=== PATIENT | male | born 1935 | race Caucasian/White ===

== ENCOUNTER 2017-08-16 07:40 | Observation (INO) ==
--- NOTE | 2017-08-16 10:52 | Internal Med History&Physical ---
Date of Encounter: 08/17/17 Time of Encounter: 10:52 Assessment and Plan (1) COPD exacerbation Current visit: Yes Status: Acute ASSESSMENT: - SOB due to * COPD exacerbation caused by URTI vs allergen exposure vs medication nonocompliance PLAN: - Aerosols q 4 hr and PRN SOB - Solu-medrol 40 mg IV q 6 hr - O2 to keep SpO2 higher than 92% (SpO higher than 95% if CAD) - CBCD, BMP in AM - Sputum Gram stain, C+S - Tylenol 650 mg PO q 4-6 hr PRN pain/fever - Heparin 5000 U SQ BID - Home meds - check the list and restart - ABs (2) Essential hypertension Current visit: Yes Status: Acute We will continue home medication. (3) Diabetes mellitus Current visit: Yes Status: Acute We will continue home meds, start patient Accu-Chek with moderate insulin coverage, obtain hemoglobin A1c. Qualifiers: Diabetes mellitus type: type 2 Diabetes mellitus complication status: with unspecified complications Diabetes mellitus laborer marine terminal insulin use: without usp use Qualified Code(s): E11.8 - Type 2 diabetes mellitus with unspecified complications (4) DVT prophylaxis Current visit: Yes Status: Acute We will place the patient on SCD (5) History of gastroesophageal reflux (GERD) Current visit: Yes Status: Acute Continue home medication (6) Hyperlipidemia Current visit: Yes Status: Acute We will continue her medication and obtain FLP in a.m. Qualifiers: Hyperlipidemia type: pure hypercholesterolemia Qualified Code(s): E78.00 - Pure hypercholesterolemia, unspecified; E78.0 - Pure hypercholesterolemia Internal Medicine - H&P: HPI Chief complaint: Shortness of breath History of present illness: Mr. Kerr is a 82 year old male with past medical history of hypertension diabetes mellitus GERD who presented to the outside facility ER with resented with progressively worsening productive cough associated with dyspnea, she was evaluated by ER staff and had her laboratory data revealed leukocytosis of 20 And lactic acidosis of 1.9, the patient was admitted for further evaluation and management of COPD exacerbation. Past Med Surg Social Fam HX - Past Medical History Medical history: cancer, COPD, diabetes, hyperlipidemia, hypertension Psychiatric history: no psych history - Past Surgical History Surgical History: cancer surgery - Social History Smoking Status: Former smoker Alcohol use: none Drug use: none - Family History Daughter Living Status: Hx Family Cancer: Yes Internal Medicine - H&P: Meds Advair 500-50 Diskus 1 puff IH BID 08/16/17 [History] Albuterol Neb [Proventil Neb] 2.5 mg IH Q4HR 08/16/17 [History] Atorvastatin Calcium [Lipitor] 20 mg PO DAILY 08/16/17 [History] Docusate [Colace] 100 mg PO DAILY 08/16/17 [History] Gabapentin [Neurontin] 100 mg PO BID 08/16/17 [History] Ibuprofen [Ibuprofen] 800 mg PO BID PRN 08/16/17 [History] Magnesium Oxide [Mgo] 400 mg PO DAILY 08/16/17 [History] Metoprolol [Lopressor] 25 mg PO BID 08/16/17 [History] Mirtazapine [Remeron] 30 mg PO HS 08/16/17 [History] Multivitamin [One Daily Essential] 1 tab PO DAILY 08/16/17 [History] Omeprazole [PriLOSEC] 40 mg PO BID 08/16/17 [History] Tizanidine HCl 4 mg PO HS PRN 08/16/17 [History] glipiZIDE [Glucotrol] 2.5 mg PO DAILY 08/16/17 [History] 3 Allergy/AdvReac Type Severity Reaction Status Date / Time levofloxacin [From Levaquin] Allergy Unknown Itching Verified 08/16/17 10:32 Penicillins [PCN] Allergy Unknown Hives Verified 08/16/17 10:32 sulfamethoxazole Allergy Unknown Itching Verified 08/16/17 10:32 [From Bactrim] trimethoprim [From Bactrim] Allergy Unknown Itching Verified 08/16/17 10:32 All Systems PM: A 10-system review of systems was performed and is negative for pertinent findings except as documented above in the HPI. - Constitutional Constitutional: no chills, no fever(s), no night sweats - Cardiovascular Cardiovascular ROS IM: no chest pain, no diaphoresis, no dyspnea, no lightheadedness, no palpitations, no syncope - Respiratory Respiratory: dyspnea, wheezing, no cough, no excessive phlegm production - Gastrointestinal Gastrointestinal: no abdominal pain, no diarrhea, no hematemesis, no hematochezia, no melena, no nausea, no vomiting - Neurological Neurological ROS: no confusion, no convulsions, no focal weakness, no numbness, no tingling, no tremor(s) - Head Head exam: Present: atraumatic, normocephalic - Neck Neck exam general surgery: Present: supple, trachea midline. Absent: lymphadenopathy - Respiratory Respiratory exam: Present: rhonchi, wheezes. Absent: accessory muscle use, rales - Cardiovascular Cardiovascular exam: Present: RRR, +S1, +S2. Absent: diastolic murmur, gallop, rubs, systolic murmur - GI/Abdominal GI/Abdominal exam: Present: normal bowel sounds, soft, no peritoneal signs. Absent: distended, tenderness - Extremities Exam Extremities exam: Present: warm, radial pulses palpable and symmetrical. Absent : calf tenderness, cyanotic, pedal edema - Neurological Exam Neurological exam: Present: CN II-XII intact, oriented X3, no focal deficits. Absent: pronater drift, facial droop, speech deficit Internal Med - H&P Results - Labs CBC & Chem 7: 08/17/17 07:22 08/17/17 07:22
[2017-08-16] MEDS ORDERED: Ondansetron ODT 4 MG TAB.RAPDIS SL PRN (10:54)
[2017-08-16] MEDS ORDERED: *HR* Morphine 2 MG/ML SYRINGE IVP PRN (10:54)
[2017-08-16] MEDS ORDERED: Naloxone 0.4 MG/ML INJ IVP PRN (10:54)
[2017-08-16 11:46] LABS: Basophils # 0.1 K/mcL (0.0-0.2); Basophils % 0.2 %; Hematocrit 38.4 % (37.5-50.1); Hemoglobin 12.2 g/dL (12.9-16.9); Immature Granulocytes % 0.6 % (0-4); Lymphocytes # 0.5 K/mcL (0.6-4.6); Lymphocytes % 2.2 %; Mean Corpuscular HGB Conc 31.8 g/dL (31.6-35.5); Mean Corpuscular Hemoglobin 28.4 pg (28.0-33.3); Mean Corpuscular Volume 89.3 fL (83.0-100.0); Mean Platelet Volume 11.3 fL (9.4-12.4); Monocytes # 0.1 K/mcL (0.0-1.3); Monocytes % 0.6 %; Neutrophils # 19.5 K/mcL (1.6-8.9); Platelet Count 213 K/mcL (140-400); Red Cell Distribution Width 14.9 % (11.5-14.5); Segmented Neutrophils % 96.4 %
[2017-08-16] MEDS: Ipratropium/Albuterol Neb 3 ML IH SCH ×2 (11:46→16:45)
[2017-08-16 11:59] LABS: Alanine Aminotransferase 11 Units/L (7-52); Albumin 3.2 g/dL (3.5-5.7); Alkaline Phosphatase 78 Units/L (34-104); Aspartate Amino Transferase 15 Units/L (13-39); BUN/Creatinine Ratio 24 (6-26); Bilirubin,Total 0.4 mg/dL (0.3-1.0); Blood Urea Nitrogen 23 mg/dL (8-23); Calcium 8.4 mg/dL (8.6-10.3); Carbon Dioxide 22 mEq/L (23-29); Chloride 109 mEq/L (98-107); Globulin 3.3 g/dL (2.4-3.5); Glucose 158 mg/dL (70-105); Osmolality,Calculated 295 (280-300); Potassium 4.3 mEq/L (3.5-5.1); Sodium 139 mEq/L (136-145); Total Protein 6.5 g/dL (6.4-8.9); eGFR For African Americans > 60 (> 60); eGFR For Non-African Americans > 60 (> 60)
[2017-08-16] MEDS: Azithromycin 500 MG in D5% in Water 250 ML IVPB SCH (14:59)
[2017-08-16] MEDS: 0.9 % Sodium Chloride 1,000 ML IVC SCH ×2 (15:00→23:09)
[2017-08-16] MEDS: MethylPREDNISolone 40 MG/ML VIAL IVP SCH ×3 (15:00→23:09)
[2017-08-16] MEDS ORDERED: Ibuprofen 400 MG TABLET PO PRN (19:14)
[2017-08-16] MEDS ORDERED: Dextrose Gel 15 GM/37.5 ML TUBE PO PRN ×2 (19:16)
[2017-08-16] MEDS ORDERED: *HR* Dextrose 50 % in Water (Syg) 50 ML SYRINGE IVP PRN (19:16)
[2017-08-16] MEDS ORDERED: D5% in Water 1,000 ML IVC PRN (19:16)
[2017-08-16 19:34] LABS: Hemoglobin A1C 6.1 %
[2017-08-16] MEDS: Albuterol 2.5 MG/3 ML NEBULIZER IH SCH (20:34)
[2017-08-16] MEDS ORDERED: Budesonide/Formoterol 160/4.5 MDI IH SCH (21:00)
[2017-08-16] MEDS: Gabapentin 100 MG CAPSULE PO SCH (23:08)
[2017-08-16] MEDS: Mirtazapine 15 MG TABLET PO SCH (23:08)
[2017-08-16] MEDS: Insulin LISPRO 300 UNITS/3 ML VIAL SQ SCH (23:09)
[2017-08-17] MEDS: Ipratropium/Albuterol Neb 3 ML IH SCH ×5 (00:40→22:49)
[2017-08-17] MEDS: Albuterol 2.5 MG/3 ML NEBULIZER IH SCH ×2 (00:41→04:08)
[2017-08-17] MEDS: MethylPREDNISolone 40 MG/ML VIAL IVP SCH ×4 (06:00→23:29)
[2017-08-17] MEDS: Acetaminophen 325 MG TABLET PO PRN ×2 (06:25→22:51)
[2017-08-17 07:56] LABS: INR 1.2; Prothrombin Time 12.5 Seconds (9.4-12.1)
[2017-08-17 08:06] LABS: Basophils % 0.1 %; Hematocrit 35.5 % (37.5-50.1); Hemoglobin 11.3 g/dL (12.9-16.9); Immature Granulocytes % 0.6 % (0-4); Lymphocytes # 0.7 K/mcL (0.6-4.6); Lymphocytes % 4.4 %; Mean Corpuscular HGB Conc 31.8 g/dL (31.6-35.5); Mean Corpuscular Hemoglobin 28.4 pg (28.0-33.3); Mean Corpuscular Volume 89.2 fL (83.0-100.0); Mean Platelet Volume 11.4 fL (9.4-12.4); Monocytes # 0.4 K/mcL (0.0-1.3); Monocytes % 2.1 %; Neutrophils # 15.2 K/mcL (1.6-8.9); Platelet Count 209 K/mcL (140-400); Red Blood Count 3.98 M/mcL (4.19-5.50); Red Cell Distribution Width 14.9 % (11.5-14.5); Segmented Neutrophils % 92.8 %
[2017-08-17 08:23] LABS: Alanine Aminotransferase 11 Units/L (7-52); Albumin 2.8 g/dL (3.5-5.7); Alkaline Phosphatase 61 Units/L (34-104); Aspartate Amino Transferase 12 Units/L (13-39); BUN/Creatinine Ratio 29 (6-26); Bilirubin,Total 0.3 mg/dL (0.3-1.0); Blood Urea Nitrogen 25 mg/dL (8-23); Calcium 8.1 mg/dL (8.6-10.3); Carbon Dioxide 24 mEq/L (23-29); Chloride 111 mEq/L (98-107); Chol/HDL Ratio 2.7 (0-4.9); Cholesterol 118 mg/dL (< 200); Globulin 2.7 g/dL (2.4-3.5); Glucose 193 mg/dL (70-105); HDL Cholesterol 43 mg/dL (40-59); LDL Cholesterol,Calculated 65 mg/dL (0-99); Magnesium 1.7 mg/dL (1.6-2.6); Osmolality,Calculated 300 (280-300); Phosphorous 2.1 mg/dL (2.7-4.5); Sodium 140 mEq/L (136-145); Total Protein 5.5 g/dL (6.4-8.9); Triglycerides 51 mg/dL (< 150); eGFR For African Americans > 60 (> 60); eGFR For Non-African Americans > 60 (> 60)
[2017-08-17] MEDS ORDERED: *HR* GlipiZIDE 5 MG TABLET PO SCH (09:00)
[2017-08-17] MEDS: Multivit/Ca/Min/Fe/FA 1 TAB TABLET PO SCH (09:36)
[2017-08-17] MEDS: Gabapentin 100 MG CAPSULE PO SCH ×2 (09:36→22:40)
[2017-08-17] MEDS: Magnesium Oxide 400 MG TABLET PO SCH (09:36)
[2017-08-17] MEDS: Insulin LISPRO 300 UNITS/3 ML VIAL SQ SCH ×4 (09:41→22:39)
--- NOTE | 2017-08-17 09:55 | Internal Med Progress Note ---
<Jose Markham - Last Filed: 08/17/17 09:49> Date of Encounter: 08/17/17 Time of Encounter: 09:49 - Assessment and plan (1) COPD exacerbation Current Visit: Yes Status: Acute Assessment and plan: Presented with worsening cough, productive sputum, dyspnea. Patient's symptoms improved after starting antibiotics, DuoNeb's, Solu-Medrol, Symbicort. Patient's leukocytosis has improved from 20>16.3 At previous facility rapid influenza screen was negative. Lactic acid was 1.95. Plan: Continue current medication regimen. Repeat CBC in the morning. Qualify patient for 24 hour oxygen therapy if we are not able to wean him off oxygen. (2) Diabetes mellitus Current Visit: Yes Status: Acute Assessment and plan: Patient has type 2 diabetes mellitus. Last hemoglobin A1c is 6.1. Patient is on oral hypoglycemic therapy outpatient. Currently patient is on sliding scale. Start patient on 6 units of Levemir at night. Patient is on Solu-Medrol which will worsen his hyperglycemia. We will continue diabetic diet. 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 Continue omeprazole. (4) Essential hypertension Current Visit: Yes Status: Acute Assessment and plan: Controlled. Continue metoprolol (5) Hyperlipidemia Current Visit: Yes Status: Acute Assessment and plan: Control. Continue statin. Qualifiers: Hyperlipidemia type: pure hypercholesterolemia Qualified Code(s): E78.00 - Pure hypercholesterolemia, unspecified; E78.0 - Pure hypercholesterolemia (6) DVT prophylaxis Current Visit: Yes Status: Acute Assessment and plan: heparin SQ - Subjective Interval history: Patient was a transfer from [facility]. His chief complaint was shortness of breath. Patient had symptoms of shortness of breath starting 3 days before admission. Along with that he had productive cough. Patient reported that shortness of breath woke him up from sleep. He reported clear sputum production and fatigue. Patient uses oxygen at night and sometimes throughout the day. He is on 2 L at home. He reports his nebulizer treatments at home did not help with his symptoms. Patient had a chest x-ray done at previous hospital which showed patchy bronchial wall thickening of the right lung base with subtle nodularity. Imaging is not available this report patient's EKG showed sinus tachycardia. This morning patient is awake and alert eating breakfast. He reports that shortness of breath has improved. He is on 2 L oxygen. He reports green sputum production. He denies any chest pain, palpitations, dizziness, abdominal pain, nausea, vomiting, lower extremity swelling, lower extremity pain. - Constitutional Vitals: Temp Pulse Resp BP Pulse Ox 97.6 F 78 17 103/62 97 08/17/17 07:30 08/17/17 07:30 08/17/17 07:30 08/17/17 07:30 08/17/17 07:30 - Other Additional findings: General: Pleasant without distress HEENT: Head atraumatic, normocephalic, EOMI, PERRA, neck nontender to palpation , absent lymphadenopathy, Moist Mucous Membranes, Heart: Regular rate and rhythm with no murmur Lungs: Patient's breast sounds are diminished bilaterally and has some inspiratory wheezing. Abdomen: Soft nontender, nondistended positive bowel sounds Skin: warm and dry Extremities: Absent pedal edema, Neuro: Alert oriented 3 Vascular: Pedal and radial pulses 2 out of 4 Internal Medicine: Result - Labs CBC & Chem 7: 08/17/17 07:22 08/17/17 07:22 Labs: Short CBC 08/16/17 08/17/17 Range/Units 11:31 07:22 WBC 20.2 H 16.3 H (4.3-11.1) K/mcL Hgb 12.2 L 11.3 L (12.9-16.9) g/dL Hct 38.4 35.5 L (37.5-50.1) % Plt Count 213 209 (140-400) K/mcL Neutrophils # 19.5 H 15.2 H (1.6-8.9) K/mcL BMP 08/16/17 08/17/17 11:31 07:22 Sodium 139 140 Potassium 4.3 4.0 Chloride 109 H 111 H Carbon Dioxide 22 L 24 BUN 23 25 H Creatinine 0.96 0.87 Glucose 158 H 193 H Calcium 8.4 L 8.1 L Cardiac Enzymes 08/16/17 08/16/17 08/16/17 Range/Units 11:31 18:09 22:40 Troponin I 0.04 H* 0.03 0.03 (< 0.04) ng/mL Liver Function 08/16/17 08/17/17 Range/Units 11:31 07:22 Total Bilirubin 0.4 0.3 (0.3-1.0) mg/dL AST 15 12 L (13-39) Units/L ALT 11 11 (7-52) Units/L Alkaline Phosphatase 78 61 (34-104) Units/L Albumin 3.2 L 2.8 L (3.5-5.7) g/dL - ABG Interpretation ABG results: PT/INR, D-dimer PT 12.5 Seconds (9.4-12.1) H 08/17/17 07:22 Consult Discharge Plan - Plan Referrals: Asmita De Santiago MD [Primary Care Provider] - <Guanaco Watts - Last Filed: 08/17/17 13:44> Date of Encounter: 08/17/17 - Constitutional Vitals: Temp Pulse Resp BP Pulse Ox 98.2 F 71 17 112/57 96 08/17/17 11:11 08/17/17 11:11 08/17/17 11:11 08/17/17 11:11 08/17/17 11:11 Internal Medicine: Result - Labs CBC & Chem 7: 08/17/17 07:22 08/17/17 07:22 Labs: Short CBC 08/17/17 Range/Units 07:22 WBC 16.3 H (4.3-11.1) K/mcL Hgb 11.3 L (12.9-16.9) g/dL Hct 35.5 L (37.5-50.1) % Plt Count 209 (140-400) K/mcL Neutrophils # 15.2 H (1.6-8.9) K/mcL BMP 08/17/17 07:22 Sodium 140 Potassium 4.0 Chloride 111 H Carbon Dioxide 24 BUN 25 H Creatinine 0.87 Glucose 193 H Calcium 8.1 L Cardiac Enzymes 08/16/17 08/16/17 Range/Units 18:09 22:40 Troponin I 0.03 0.03 (< 0.04) ng/mL Liver Function 08/17/17 Range/Units 07:22 Total Bilirubin 0.3 (0.3-1.0) mg/dL AST 12 L (13-39) Units/L ALT 11 (7-52) Units/L Alkaline Phosphatase 61 (34-104) Units/L Albumin 2.8 L (3.5-5.7) g/dL - ABG Interpretation ABG results: PT/INR, D-dimer PT 12.5 Seconds (9.4-12.1) H 08/17/17 07:22 - Attending Attestation I have independently seen and examined this patient on 08/17/17 and discussed plan of care with the patient and the resident physicians Mr. Kerr is an 82 YO pleanst elderly man with PMH of COPD, chronic resp failure on home O2, DM, GERD he is admitted and being managed for COPDE and Bronchitis He has no new complains, and is laying flat, conversing freely, occasionally dyspneic Physical exam: VSS, not in distress, not cyanotic, oral mucosa is moist, chest exam revealed diffuse wheezing, HS S1, S2 only, no m/g/r, abdomen is soft and not tender, no pedal edema Labs and Imaging reviewed, leukocytosis improving, chem unremarkable Continue duonebs azithromycin, steroids, O2. Rest of details as in resident physician's documentation
[2017-08-17] MEDS: Azithromycin 500 MG in D5% in Water 250 ML IVPB SCH (12:03)
[2017-08-17] MEDS: *HR* Heparin 5,000 UNIT/ML VIAL SQ SCH ×2 (12:05→18:11)
[2017-08-17] MEDS ORDERED: Sennosides/Docusate Sodium TABLET PO PRN (17:09)
[2017-08-17] MEDS: Insulin DETEMIR 100 UNIT/ML X5UNITS SQ SCH (22:40)
[2017-08-17] MEDS: Mirtazapine 15 MG TABLET PO SCH (22:40)
[2017-08-17] MEDS: Melatonin 3 MG TABLET PO PRN (23:29)
[2017-08-18 04:11] LABS: Basophils % 0.1 %; Hematocrit 35.5 % (37.5-50.1); Hemoglobin 10.9 g/dL (12.9-16.9); Immature Granulocytes % 1.1 % (0-4); Immature Platelets 7.9 % (1.1-6.1); Lymphocytes # 0.6 K/mcL (0.6-4.6); Lymphocytes % 3.2 %; Mean Corpuscular HGB Conc 30.7 g/dL (31.6-35.5); Mean Corpuscular Volume 91.3 fL (83.0-100.0); Mean Platelet Volume 11.3 fL (9.4-12.4); Monocytes # 0.4 K/mcL (0.0-1.3); Monocytes % 1.8 %; Neutrophils # 17.8 K/mcL (1.6-8.9); Nucleated Red Blood Cells 0.2 /100 WBC (0); Platelet Count 246 K/mcL (140-400); Red Blood Count 3.89 M/mcL (4.19-5.50); Red Cell Distribution Width 15.3 % (11.5-14.5); Segmented Neutrophils % 93.8 %
[2017-08-18] MEDS: Ipratropium/Albuterol Neb 3 ML IH SCH ×4 (04:12→23:20)
[2017-08-18] MEDS: MethylPREDNISolone 40 MG/ML VIAL IVP SCH ×3 (06:15→16:47)
[2017-08-18] MEDS: *HR* Heparin 5,000 UNIT/ML VIAL SQ SCH ×2 (06:15→16:46)
--- NOTE | 2017-08-18 09:05 | Internal Med Progress Note ---
<Jose Markham - Last Filed: 08/18/17 09:01> Date of Encounter: 08/18/17 Time of Encounter: 09:01 - Assessment and plan (1) COPD exacerbation Current Visit: Yes Status: Acute Assessment and plan: Presented with worsening cough, productive sputum, dyspnea. Patient's symptoms improved after starting antibiotics, DuoNeb's, Solu-Medrol, Symbicort. Leukocytosis worsened from 16-19 secondary to IV steroids. At previous facility rapid influenza screen was negative. on 2L improved sob. Plan: Continue current medication regimen. Qualify patient for 24 hour oxygen therapy if we are not able to wean him off oxygen. PT/OT. Transition from Solu- Medrol to prednisone. (2) Diabetes mellitus Current Visit: Yes Status: Acute Assessment and plan: Patient has type 2 diabetes mellitus. Last hemoglobin A1c is 6.1. Continue basal Levemir. We will continue diabetic diet. 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 Continue omeprazole. (4) Essential hypertension Current Visit: Yes Status: Acute Assessment and plan: Controlled. Continue metoprolol (5) Hyperlipidemia Current Visit: Yes Status: Acute Assessment and plan: Control. Continue statin. Qualifiers: Hyperlipidemia type: pure hypercholesterolemia Qualified Code(s): E78.00 - Pure hypercholesterolemia, unspecified; E78.0 - Pure hypercholesterolemia (6) DVT prophylaxis Current Visit: Yes Status: Acute Assessment and plan: heparin SQ - Subjective Interval history: This morning patient reports improved shortness of breath. Denies chest pain, palpitations, abdominal pain, worsening swelling/pain. - Constitutional Vitals: Temp Pulse Resp BP Pulse Ox 97.4 F L 92 18 147/94 93 08/18/17 07:41 08/18/17 07:41 08/18/17 07:41 08/18/17 07:41 08/18/17 07:41 - Other Additional findings: General: Pleasant without distress Heart: Regular rate and rhythm with no murmur Lungs: Diminished bilaterally. Mild inspiratory wheezing Abdomen: Soft nontender, nondistended positive bowel sounds Skin: warm and dry Extremities: Absent pedal edema, Neuro: Alert oriented 3 Vascular: Pedal and radial pulses 2 out of 4 Internal Medicine: Result - Labs CBC & Chem 7: 08/18/17 03:36 08/17/17 07:22 Labs: Short CBC 08/18/17 Range/Units 03:36 WBC 19.0 H (4.3-11.1) K/mcL Hgb 10.9 L (12.9-16.9) g/dL Hct 35.5 L (37.5-50.1) % Plt Count 246 (140-400) K/mcL Neutrophils # 17.8 H (1.6-8.9) K/mcL - ABG Interpretation ABG results: PT/INR, D-dimer PT 12.5 Seconds (9.4-12.1) H 08/17/17 07:22 Consult Discharge Plan - Plan Referrals: Asmita De Santiago MD [Primary Care Provider] - <Guanaco Watts T - Last Filed: 08/18/17 15:21> Date of Encounter: 08/18/17 - Constitutional Vitals: Temp Pulse Resp BP Pulse Ox 98.3 F 79 22 108/61 95 08/18/17 15:10 08/18/17 15:10 08/18/17 15:10 08/18/17 15:10 08/18/17 15:10 Internal Medicine: Result - Labs CBC & Chem 7: 08/18/17 03:36 08/17/17 07:22 Labs: Short CBC 08/18/17 Range/Units 03:36 WBC 19.0 H (4.3-11.1) K/mcL Hgb 10.9 L (12.9-16.9) g/dL Hct 35.5 L (37.5-50.1) % Plt Count 246 (140-400) K/mcL Neutrophils # 17.8 H (1.6-8.9) K/mcL - ABG Interpretation ABG results: PT/INR, D-dimer PT 12.5 Seconds (9.4-12.1) H 08/17/17 07:22 - Attending Attestation I have independently seen and examined this patient on 08/18/17 and discussed plan of care with the patient and the resident physicians Mr. Kerr is an 82 YO pleasant elderly man with PMH of COPD, chronic resp failure on home O2, DM, GERD he is admitted and being managed for COPDE and Bronchitis He has no new complains, and is laying flat, conversing freely, occasionally dyspneic inbetween sentences He looks flushed today and even though he attributes it to having just finished PTOT prior to eval, he looks more distressed Physical exam: VSS, not in distress, not cyanotic, oral mucosa is moist, chest exam revealed diffuse transmitted sounds and wheezing, HS S1, S2 only, no m/g/r , abdomen is soft and not tender, no pedal edema Labs and Imaging reviewed, leukocytosis slightly worsened, chem unremarkable Continue duonebs , add prn dosing, change antibiotics to levaquin, steroids, O2 qualification . Rest of details as in resident physician's documentation
[2017-08-18] MEDS: Gabapentin 100 MG CAPSULE PO SCH ×2 (09:24→22:34)
[2017-08-18] MEDS: Multivit/Ca/Min/Fe/FA 1 TAB TABLET PO SCH (09:24)
[2017-08-18] MEDS: Magnesium Oxide 400 MG TABLET PO SCH (09:24)
[2017-08-18] MEDS: Insulin LISPRO 300 UNITS/3 ML VIAL SQ SCH ×4 (09:25→22:37)
[2017-08-18] MEDS: Budesonide/Formoterol 160/4.5 MDI IH SCH ×2 (11:02→23:21)
[2017-08-18] MEDS: Azithromycin 500 MG in D5% in Water 250 ML IVPB SCH (11:49)
[2017-08-18] MEDS ORDERED: Ipratropium/Albuterol Neb 3 ML IH PRN (13:43)
[2017-08-18] MEDS: Acetaminophen 325 MG TABLET PO PRN (22:33)
[2017-08-18] MEDS: Insulin DETEMIR 100 UNIT/ML X5UNITS SQ SCH (22:34)
[2017-08-18] MEDS: Mirtazapine 15 MG TABLET PO SCH (22:34)
[2017-08-18] MEDS: Melatonin 3 MG TABLET PO PRN (22:46)
[2017-08-19] MEDS: Ipratropium/Albuterol Neb 3 ML IH SCH ×4 (04:15→22:50)
[2017-08-19 06:28] LABS: Basophils % 0.1 %; Hematocrit 34.3 % (37.5-50.1); Hemoglobin 10.8 g/dL (12.9-16.9); Immature Granulocytes % 0.6 % (0-4); Lymphocytes # 0.9 K/mcL (0.6-4.6); Mean Corpuscular HGB Conc 31.5 g/dL (31.6-35.5); Mean Corpuscular Hemoglobin 28.1 pg (28.0-33.3); Mean Corpuscular Volume 89.1 fL (83.0-100.0); Mean Platelet Volume 11.7 fL (9.4-12.4); Monocytes # 0.7 K/mcL (0.0-1.3); Monocytes % 4.8 %; Neutrophils # 12.6 K/mcL (1.6-8.9); Platelet Count 247 K/mcL (140-400); Red Blood Count 3.85 M/mcL (4.19-5.50); Red Cell Distribution Width 15.3 % (11.5-14.5); Segmented Neutrophils % 88.5 %
[2017-08-19 06:35] LABS: BUN/Creatinine Ratio 37 (6-26); Blood Urea Nitrogen 28 mg/dL (8-23); Calcium 8.2 mg/dL (8.6-10.3); Carbon Dioxide 30 mEq/L (23-29); Chloride 108 mEq/L (98-107); Glucose 109 mg/dL (70-105); Osmolality,Calculated 296 (280-300); Potassium 4.1 mEq/L (3.5-5.1); Sodium 140 mEq/L (136-145); eGFR For African Americans > 60 (> 60); eGFR For Non-African Americans > 60 (> 60)
[2017-08-19] MEDS: predniSONE 20 MG TABLET PO SCH (08:30)
[2017-08-19] MEDS: levoFLOXacin 750 MG TABLET PO SCH (08:30)
[2017-08-19] MEDS: Magnesium Oxide 400 MG TABLET PO SCH (08:30)
[2017-08-19] MEDS: Multivit/Ca/Min/Fe/FA 1 TAB TABLET PO SCH (08:30)
[2017-08-19] MEDS: Insulin LISPRO 300 UNITS/3 ML VIAL SQ SCH ×3 (08:31→22:33)
[2017-08-19] MEDS: Gabapentin 100 MG CAPSULE PO SCH ×2 (08:31→22:34)
[2017-08-19] MEDS: *HR* Heparin 5,000 UNIT/ML VIAL SQ SCH (08:31)
[2017-08-19] MEDS: Budesonide/Formoterol 160/4.5 MDI IH SCH ×2 (10:35→22:50)
[2017-08-19] MEDS: Acetaminophen 325 MG TABLET PO PRN ×2 (15:01→22:37)
--- NOTE | 2017-08-19 15:57 | Internal Med Progress Note ---
Date of Encounter: 08/19/17 Time of Encounter: 15:55 - Assessment and plan (1) COPD exacerbation Current Visit: Yes Status: Acute Assessment and plan: 82-year-old/male Admitted with COPD is admission. Presently on levofloxacin/steroids/bronchodilators Polyphonic wheezes still present. No accessory muscles of respiration in use. WBC count: Trending downwards. Plan: Will continue antibiotics/steroids and bronchodilators for today. Noted that patient is approved for short-term rehabilitation. We will change IV antibiotics to oral antibiotics tomorrow. Patient will go back to short-term rehabilitation tomorrow. (2) Diabetes mellitus Current Visit: Yes Status: Acute Assessment and plan: Blood sugar level is within acceptable range. Qualifiers: Diabetes mellitus type: type 2 Diabetes mellitus complication status: with unspecified complications Diabetes mellitus skilled nursing insulin use: without skilled nursing use Qualified Code(s): E11.8 - Type 2 diabetes mellitus with unspecified complications (3) Essential hypertension Current Visit: Yes Status: Acute Assessment and plan: Patient's blood pressure is within acceptable range (4) Hyperlipidemia Current Visit: Yes Status: Acute Qualifiers: Hyperlipidemia type: pure hypercholesterolemia Qualified Code(s): E78.00 - Pure hypercholesterolemia, unspecified; E78.0 - Pure hypercholesterolemia (5) DVT prophylaxis Current Visit: Yes Status: Acute - Subjective Interval history: Patient seen and examined. Discharge elevated. Is comfortably sitting up in a chair. Patient denies chest pain, nausea, vomiting, abdominal pain, dizziness or diarrhea. - Constitutional Vitals: Temp Pulse Resp BP Pulse Ox 98 F 70 16 121/66 98 08/19/17 11:06 08/19/17 11:06 08/19/17 15:38 08/19/17 11:06 08/19/17 15:38 General appearance: Present: A&O X 3, pleasant, no acute distress, answers questions appropriately - Head Head exam: Present: atraumatic, normocephalic - Eye Eye exam: Present: PERRL, conjuntiva pink, sclera anicteric Pupils: Present: PERRL - Neck Neck exam general surgery: Present: supple, trachea midline. Absent: lymphadenopathy - Respiratory Respiratory exam: Present: CTAB, rhonchi, wheezes. Absent: accessory muscle use , rales Additional comments: Bilateral polyphonic wheezes noted - Cardiovascular Cardiovascular exam: Present: RRR, +S1, +S2. Absent: diastolic murmur, gallop, rubs, systolic murmur - GI/Abdominal GI/Abdominal exam: Present: normal bowel sounds, soft, no peritoneal signs. Absent: distended, tenderness - Extremities Exam Extremities exam: Present: warm, radial pulses palpable and symmetrical. Absent : calf tenderness, cyanotic, pedal edema - Neurological Exam Neurological exam: Present: CN II-XII intact, oriented X3, no focal deficits. Absent: pronater drift, facial droop, speech deficit - Skin Skin exam: Present: dry, intact Internal Medicine: Result - Labs CBC & Chem 7: 08/19/17 05:58 08/19/17 05:58 Labs: Short CBC 08/19/17 Range/Units 05:58 WBC 14.3 H (4.3-11.1) K/mcL Hgb 10.8 L (12.9-16.9) g/dL Hct 34.3 L (37.5-50.1) % Plt Count 247 (140-400) K/mcL Neutrophils # 12.6 H (1.6-8.9) K/mcL BMP 08/19/17 05:58 Sodium 140 Potassium 4.1 Chloride 108 H Carbon Dioxide 30 H BUN 28 H Creatinine 0.75 Glucose 109 H Calcium 8.2 L - ABG Interpretation ABG results: PT/INR, D-dimer PT 12.5 Seconds (9.4-12.1) H 08/17/17 07:22 Consult Discharge Plan - Plan Referrals: Amsita De Santiago MD [Primary Care Provider] - (called and left message)
[2017-08-19] MEDS: Insulin DETEMIR 100 UNIT/ML X5UNITS SQ SCH (22:33)
[2017-08-19] MEDS: Mirtazapine 15 MG TABLET PO SCH (22:34)
[2017-08-20] MEDS: Melatonin 3 MG TABLET PO PRN (00:41)
[2017-08-20] MEDS: Ipratropium/Albuterol Neb 3 ML IH SCH ×4 (04:22→22:08)
[2017-08-20] MEDS: Insulin LISPRO 300 UNITS/3 ML VIAL SQ SCH ×4 (08:34→19:58)
[2017-08-20] MEDS: Gabapentin 100 MG CAPSULE PO SCH ×2 (08:41→19:54)
[2017-08-20] MEDS: Multivit/Ca/Min/Fe/FA 1 TAB TABLET PO SCH (08:41)
[2017-08-20] MEDS: levoFLOXacin 750 MG TABLET PO SCH (08:42)
[2017-08-20] MEDS: *HR* Heparin 5,000 UNIT/ML VIAL SQ SCH ×2 (08:42→17:12)
[2017-08-20] MEDS: Magnesium Oxide 400 MG TABLET PO SCH (08:42)
[2017-08-20] MEDS: predniSONE 20 MG TABLET PO SCH (08:42)
[2017-08-20] MEDS: Budesonide/Formoterol 160/4.5 MDI IH SCH ×2 (09:11→22:08)
[2017-08-20] MEDS: Mag Hydrox/Al Hydrox/Simeth 30 ML UDC PO PRN (12:43)
--- NOTE | 2017-08-20 18:22 | Internal Med Progress Note ---
Date of Encounter: 08/20/17 Time of Encounter: 18:21 - Assessment and plan (1) COPD exacerbation Current Visit: Yes Status: Acute Assessment and plan: 82-year-old/male Admitted with COPD is admission. Presently on levofloxacin/steroids/bronchodilators Polyphonic wheezes still present. No accessory muscles of respiration in use. WBC count: Trending downwards. Plan: Will continue antibiotics/steroids and bronchodilators for today. Noted that patient is approved for short-term rehabilitation. We will change IV antibiotics to oral antibiotics tomorrow. Patient will go back to short-term rehabilitation tomorrow. 08/20/2017 Today upon examination patient still has occasional polyphonic wheezes. Upon minimal exertion patient is short of breath. Patient's family request to keep patient in the hospital for one or 2 days as he lives by himself. We will initiate PT/OT evaluation. (2) Diabetes mellitus Current Visit: Yes Status: Acute Assessment and plan: Blood sugar level is within acceptable range. 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 Continue statin. Qualifiers: Hyperlipidemia type: pure hypercholesterolemia Qualified Code(s): E78.00 - Pure hypercholesterolemia, unspecified; E78.0 - Pure hypercholesterolemia (5) DVT prophylaxis Current Visit: Yes Status: Acute Assessment and plan: heparin SQ - Subjective Interval history: Patient seen and examined. Discharge elevated. Is comfortably sitting up in a chair. Patient denies chest pain, nausea, vomiting, abdominal pain, dizziness or diarrhea. 08/20/2017 Patient seen and examined. Chart reviewed. Patient is comfortably lying in bed. Patient's family member at bedside. Patient denies any shortness of breath, nausea, vomiting, abdominal pain - Constitutional Vitals: Temp Pulse Resp BP Pulse Ox 97.6 F 81 16 107/64 96 08/20/17 16:30 08/20/17 16:30 08/20/17 16:30 08/20/17 16:30 08/20/17 16:30 General appearance: Present: A&O X 3, pleasant, no acute distress, answers questions appropriately - Head Head exam: Present: atraumatic, normocephalic - Eye Eye exam: Present: PERRL, conjuntiva pink, sclera anicteric Pupils: Present: PERRL - Neck Neck exam general surgery: Present: supple, trachea midline. Absent: lymphadenopathy - Respiratory Respiratory exam: Present: CTAB. Absent: accessory muscle use, rales, rhonchi, wheezes - Cardiovascular Cardiovascular exam: Present: RRR, +S1, +S2. Absent: diastolic murmur, gallop, rubs, systolic murmur - GI/Abdominal GI/Abdominal exam: Present: normal bowel sounds, soft, no peritoneal signs. Absent: distended, tenderness - Extremities Exam Extremities exam: Present: warm, radial pulses palpable and symmetrical. Absent : calf tenderness, cyanotic, pedal edema - Neurological Exam Neurological exam: Present: CN II-XII intact, oriented X3, no focal deficits. Absent: pronater drift, facial droop, speech deficit - Skin Skin exam: Present: dry, intact Internal Medicine: Result - Labs CBC & Chem 7: 08/19/17 05:58 08/19/17 05:58 - ABG Interpretation ABG results: PT/INR, D-dimer PT 12.5 Seconds (9.4-12.1) H 08/17/17 07:22 Consult Discharge Plan - Plan Referrals: Asmita De Santiago MD [Primary Care Provider] - (called and left message)
[2017-08-20] MEDS: Acetaminophen 325 MG TABLET PO PRN (19:54)
[2017-08-20] MEDS: Mirtazapine 15 MG TABLET PO SCH (19:57)
[2017-08-20] MEDS: Insulin DETEMIR 100 UNIT/ML X5UNITS SQ SCH (19:58)
[2017-08-21] MEDS: Ipratropium/Albuterol Neb 3 ML IH SCH ×4 (03:46→22:44)
[2017-08-21] MEDS: predniSONE 20 MG TABLET PO SCH (07:55)
[2017-08-21] MEDS: Gabapentin 100 MG CAPSULE PO SCH ×2 (07:56→20:29)
[2017-08-21] MEDS: *HR* Heparin 5,000 UNIT/ML VIAL SQ SCH ×2 (07:56→17:28)
[2017-08-21] MEDS: Magnesium Oxide 400 MG TABLET PO SCH (07:56)
[2017-08-21] MEDS: Multivit/Ca/Min/Fe/FA 1 TAB TABLET PO SCH (07:56)
[2017-08-21] MEDS: levoFLOXacin 750 MG TABLET PO SCH (07:56)
[2017-08-21] MEDS: Insulin LISPRO 300 UNITS/3 ML VIAL SQ SCH ×4 (07:57→22:14)
[2017-08-21] MEDS: Budesonide/Formoterol 160/4.5 MDI IH SCH ×2 (10:29→22:44)
[2017-08-21] MEDS: Acetaminophen 325 MG TABLET PO PRN ×2 (11:39→20:28)
--- NOTE | 2017-08-21 18:44 | Internal Med Progress Note ---
Date of Encounter: 08/22/17 Time of Encounter: 18:44 - Assessment and plan (1) COPD exacerbation Current Visit: Yes Status: Acute Assessment and plan: 82-year-old/male Admitted with COPD is admission. Presently on levofloxacin/steroids/bronchodilators Polyphonic wheezes still present. No accessory muscles of respiration in use. WBC count: Trending downwards. Plan: Will continue antibiotics/steroids and bronchodilators for today. Noted that patient is approved for short-term rehabilitation. We will change IV antibiotics to oral antibiotics tomorrow. Patient will go back to short-term rehabilitation tomorrow. 08/20/2017 Today upon examination patient still has occasional polyphonic wheezes. Upon minimal exertion patient is short of breath. Patient's family request to keep patient in the hospital for one or 2 days as he lives by himself. We will initiate PT/OT evaluation. 08/21/2017 Noted PT/OT evaluation plan for placement will discuss with family and patient. RUG DESIGNER on board. (2) Diabetes mellitus Current Visit: Yes Status: Acute Assessment and plan: Blood sugar level is within acceptable range. Qualifiers: Diabetes mellitus type: type 2 Diabetes mellitus complication status: with unspecified complications Diabetes mellitus ferry terminal supervisor insulin use: without ferry terminal supervisor use Qualified Code(s): E11.8 - Type 2 diabetes mellitus with unspecified complications (3) Essential hypertension Current Visit: Yes Status: Acute Assessment and plan: Patient's blood pressure is within acceptable range (4) Hyperlipidemia Current Visit: Yes Status: Acute Assessment and plan: Control. Continue statin. Qualifiers: Hyperlipidemia type: pure hypercholesterolemia Qualified Code(s): E78.00 - Pure hypercholesterolemia, unspecified; E78.0 - Pure hypercholesterolemia (5) DVT prophylaxis Current Visit: Yes Status: Acute Assessment and plan: heparin SQ - Subjective Interval history: Patient seen and examined. Discharge elevated. Is comfortably sitting up in a chair. Patient denies chest pain, nausea, vomiting, abdominal pain, dizziness or diarrhea. 08/20/2017 Patient seen and examined. Chart reviewed. Patient is comfortably lying in bed. Patient's family member at bedside. Patient denies any shortness of breath, nausea, vomiting, abdominal pain 08/21/2017 seen and examined. chart reviewed. no new complaints awaiting for placement. - Constitutional Vitals: Temp Pulse Resp BP Pulse Ox 98.0 F 84 16 114/65 94 08/21/17 17:13 08/21/17 17:13 08/21/17 17:13 08/21/17 17:13 08/21/17 17:13 General appearance: Present: A&O X 3, pleasant, no acute distress, answers questions appropriately - Head Head exam: Present: atraumatic, normocephalic - Eye Eye exam: Present: PERRL, conjuntiva pink, sclera anicteric Pupils: Present: PERRL - Neck Neck exam general surgery: Present: supple, trachea midline. Absent: lymphadenopathy - Respiratory Respiratory exam: Present: CTAB. Absent: accessory muscle use, rales, rhonchi, wheezes - Cardiovascular Cardiovascular exam: Present: RRR, +S1, +S2. Absent: diastolic murmur, gallop, rubs, systolic murmur - GI/Abdominal GI/Abdominal exam: Present: normal bowel sounds, soft, no peritoneal signs. Absent: distended, tenderness - Extremities Exam Extremities exam: Present: warm, radial pulses palpable and symmetrical. Absent : calf tenderness, cyanotic, pedal edema - Neurological Exam Neurological exam: Present: CN II-XII intact, oriented X3, no focal deficits. Absent: pronater drift, facial droop, speech deficit - Skin Skin exam: Present: dry, intact Internal Medicine: Result - Labs CBC & Chem 7: 08/19/17 05:58 08/19/17 05:58 - ABG Interpretation ABG results: PT/INR, D-dimer PT 12.5 Seconds (9.4-12.1) H 08/17/17 07:22 Consult Discharge Plan - Plan Referrals: Asmita De Santiago MD [Primary Care Provider] - (called and left message)
[2017-08-21] MEDS: Melatonin 3 MG TABLET PO PRN (20:28)
[2017-08-21] MEDS: Mirtazapine 15 MG TABLET PO SCH (20:29)
[2017-08-21] MEDS: Insulin DETEMIR 100 UNIT/ML X5UNITS SQ SCH (22:17)
[2017-08-22] MEDS: Ipratropium/Albuterol Neb 3 ML IH SCH ×2 (04:33→11:11)
[2017-08-22] MEDS: *HR* Heparin 5,000 UNIT/ML VIAL SQ SCH ×2 (06:15→08:20)
[2017-08-22] MEDS: Insulin LISPRO 300 UNITS/3 ML VIAL SQ SCH ×3 (08:19→13:06)
[2017-08-22] MEDS: Multivit/Ca/Min/Fe/FA 1 TAB TABLET PO SCH (08:28)
[2017-08-22] MEDS: Acetaminophen 325 MG TABLET PO PRN (08:29)
[2017-08-22] MEDS: predniSONE 20 MG TABLET PO SCH (08:29)
[2017-08-22] MEDS: Magnesium Oxide 400 MG TABLET PO SCH (08:29)
[2017-08-22] MEDS: Gabapentin 100 MG CAPSULE PO SCH (08:29)
[2017-08-22] MEDS: levoFLOXacin 750 MG TABLET PO SCH (08:33)
[2017-08-22] MEDS: Mag Hydrox/Al Hydrox/Simeth 30 ML UDC PO PRN (10:29)
[2017-08-22] MEDS: Budesonide/Formoterol 160/4.5 MDI IH SCH (11:11)
--- NOTE | 2017-08-22 12:51 | Discharge Summary ---
Date of Encounter: 08/29/17 Time of Encounter: 12:47 - Discharge Diagnosis (1) COPD exacerbation Priority: Primary Status: Acute (2) Diabetes mellitus Priority: Secondary Status: Acute Qualifiers: Diabetes mellitus type: type 2 Diabetes mellitus complication status: with unspecified complications Diabetes mellitus assistant terminal manager insulin use: without snf use Qualified Code(s): E11.8 - Type 2 diabetes mellitus with unspecified complications (3) Essential hypertension Priority: Secondary Status: Acute (4) Hyperlipidemia Priority: Secondary Status: Acute Qualifiers: Hyperlipidemia type: pure hypercholesterolemia Qualified Code(s): E78.00 - Pure hypercholesterolemia, unspecified; E78.0 - Pure hypercholesterolemia (5) DVT prophylaxis Priority: Secondary Status: Acute - Discharge Medications Prescriptions: GuaiFENesin ER [Mucinex] 1,200 mg PO BID #10 tbbp.12hr levoFLOXacin [Levaquin] 750 mg PO DAILY #3 tablet predniSONE [PredniSONE] 40 mg PO DAILY #7 tablet Home Medications: Advair 500-50 Diskus 1 puff IH BID 08/16/17 [History] Albuterol Neb [Proventil Neb] 2.5 mg IH Q4HR 08/16/17 [History] Atorvastatin Calcium [Lipitor] 20 mg PO DAILY 08/16/17 [History] Docusate [Colace] 100 mg PO DAILY 08/16/17 [History] Gabapentin [Neurontin] 100 mg PO BID 08/16/17 [History] Ibuprofen 800 mg PO BID PRN 08/16/17 [History] Magnesium Oxide [Mgo] 400 mg PO DAILY 08/16/17 [History] Metoprolol [Lopressor] 25 mg PO BID 08/16/17 [History] Mirtazapine [Remeron] 30 mg PO HS 08/16/17 [History] Multivitamin [One Daily Essential] 1 tab PO DAILY 08/16/17 [History] Omeprazole [PriLOSEC] 40 mg PO BID 08/16/17 [History] Tizanidine HCl 4 mg PO HS PRN 08/16/17 [History] glipiZIDE [Glucotrol] 2.5 mg PO DAILY 08/16/17 [History] GuaiFENesin ER [Mucinex] 1,200 mg PO BID #10 tbbp.12hr 08/22/17 [Rx] levoFLOXacin [Levaquin] 750 mg PO DAILY #3 tablet 08/22/17 [Rx] predniSONE [PredniSONE] 40 mg PO DAILY #7 tablet 08/22/17 [Rx] Allergies/Adverse Reactions: 3 Allergy/AdvReac Type Severity Reaction Status Date / Time levofloxacin [From Levaquin] Allergy Unknown Itching Verified 08/16/17 10:32 Penicillins [PCN] Allergy Unknown Hives Verified 08/16/17 10:32 sulfamethoxazole Allergy Unknown Itching Verified 08/16/17 10:32 [From Bactrim] trimethoprim [From Bactrim] Allergy Unknown Itching Verified 08/16/17 10:32 Date of admission: 08/16/17 09:55 Primary care physician: Asmita De Santiago, Consults: 08/18/17 08:59 Consult to Occupational Therapy [CONS] Routine Comment: Evaluate, develop and implement POC Reason for Consult: physcial deconditioning. Consult to Physical Therapy [CONS] Routine Comment: Evaluate, develop and implement POC Reason for Consult: physcial deconditioning 08/20/17 08:58 Consult to Heating Fixture Tender [CONS] Routine Reason for SW Consult: needs ecf 08/16/17 10:54 Consult to Nurse Navigator [CONS] Routine Comment: Discharging clinician: Heath Nielson - Patient Status Disposition: Transfer SNF Condition: Good Functional capacity at discharge: uses cane/walker Overall status at discharge: patient is progressing back to baseline - Discharge Instructions Instructions: Diabetes Mellitus Type 2 in Adults (DC), Chronic Obstructive Pulmonary Disease (DC), Chronic Hypertension (DC) Follow Up With: Asmita De Santiago MD [Primary Care Provider] - (called and left message) - Diet and Activity Activity: increase activity as tolerated Diet: advance to your usual diet Interval History: Mr. Kerr is a 82 year old male with past medical history of hypertension diabetes mellitus GERD who presented to the outside facility ER with resented with progressively worsening productive cough associated with dyspnea, she was evaluated by ER staff and had her laboratory data revealed leukocytosis of 20 And lactic acidosis of 1.9, the patient was admitted for further evaluation and management of COPD exacerbation. Hospital course: Patient was hospitalized. Patient was started on IV antibiotics: Levofloxacin. She was started on oral prednisone. Patient was given inhaled bronchodilators. Patient tolerated treatment for COPD exacerbation extremely well. Patient is recovered from the initial COPD exacerbation. Patient has a family member at bedside was concerned about the placement in the ECF/SNF. PTOT evaluation was done. They recommended ECF placement. food and drink factory workers was contacted. Patient is going to assisted living/ECF today. Plan: Patient to go to ECF for further rehabilitation All his questions answered - Time Spent with Patient Total time spent providing and/or coordinating discharge services: - Constitutional Vitals: Temp Pulse Resp BP Pulse Ox 97.7 F 85 18 102/57 96 08/22/17 12:15 08/22/17 12:15 08/22/17 12:15 08/22/17 12:15 08/22/17 12:15 General appearance: Present: A&O X 3, pleasant, no acute distress, answers questions appropriately - Head Head exam: Present: atraumatic, normocephalic - Eye Eye exam: Present: PERRL, conjuntiva pink, sclera anicteric Pupils: Present: PERRL - Neck Neck exam general surgery: Present: supple, trachea midline. Absent: lymphadenopathy - Respiratory Respiratory exam: Present: CTAB. Absent: accessory muscle use, rales, rhonchi, wheezes - Cardiovascular Cardiovascular exam: Present: RRR, +S1, +S2. Absent: diastolic murmur, gallop, rubs, systolic murmur - GI/Abdominal GI/Abdominal exam: Present: normal bowel sounds, soft, no peritoneal signs. Absent: distended, tenderness - Extremities Exam Extremities exam: Present: warm, radial pulses palpable and symmetrical. Absent : calf tenderness, cyanotic, pedal edema - Neurological Exam Neurological exam: Present: CN II-XII intact, oriented X3, no focal deficits. Absent: pronater drift, facial droop, speech deficit - Skin Skin exam: Present: dry, intact
--- NOTE | 2017-08-22 12:58 | Physician Discharge Referral ---
ExtendedCare Referral Info Transfer To: [facility] Provider in Charge after Transfer: PCP - Diagnosis (1) COPD exacerbation Priority: Primary Status: Acute (2) Diabetes mellitus Priority: Secondary Status: Acute (3) Essential hypertension Priority: Secondary Status: Acute (4) Hyperlipidemia Priority: Secondary Status: Acute (5) DVT prophylaxis Priority: Secondary Status: Acute - Transfer Medications Prescriptions: GuaiFENesin ER [Mucinex] 1,200 mg PO BID #10 tbbp.12hr levoFLOXacin [Levaquin] 750 mg PO DAILY #3 tablet predniSONE [PredniSONE] 40 mg PO DAILY #7 tablet Home Medications: Advair 500-50 Diskus 1 puff IH BID 08/16/17 [History] Albuterol Neb [Proventil Neb] 2.5 mg IH Q4HR 08/16/17 [History] Atorvastatin Calcium [Lipitor] 20 mg PO DAILY 08/16/17 [History] Docusate [Colace] 100 mg PO DAILY 08/16/17 [History] Gabapentin [Neurontin] 100 mg PO BID 08/16/17 [History] Ibuprofen 800 mg PO BID PRN 08/16/17 [History] Magnesium Oxide [Mgo] 400 mg PO DAILY 08/16/17 [History] Metoprolol [Lopressor] 25 mg PO BID 08/16/17 [History] Mirtazapine [Remeron] 30 mg PO HS 08/16/17 [History] Multivitamin [One Daily Essential] 1 tab PO DAILY 08/16/17 [History] Omeprazole [PriLOSEC] 40 mg PO BID 08/16/17 [History] Tizanidine HCl 4 mg PO HS PRN 08/16/17 [History] glipiZIDE [Glucotrol] 2.5 mg PO DAILY 08/16/17 [History] GuaiFENesin ER [Mucinex] 1,200 mg PO BID #10 tbbp.12hr 08/22/17 [Rx] levoFLOXacin [Levaquin] 750 mg PO DAILY #3 tablet 08/22/17 [Rx] predniSONE [PredniSONE] 40 mg PO DAILY #7 tablet 08/22/17 [Rx] Allergies/Adverse Reactions: 3 Allergy/AdvReac Type Severity Reaction Status Date / Time levofloxacin [From Levaquin] Allergy Unknown Itching Verified 08/16/17 10:32 Penicillins [PCN] Allergy Unknown Hives Verified 08/16/17 10:32 sulfamethoxazole Allergy Unknown Itching Verified 08/16/17 10:32 [From Bactrim] trimethoprim [From Bactrim] Allergy Unknown Itching Verified 08/16/17 10:32 - Respiratory Orders Smoking Cessation: Smoking cessation has been advised. For more information, call the [place] Tobacco Quit Line at 4-777-YGTV-NOW. - Rehabiliation Orders Rehab Orders: Evaluation for Physical Therapy, Evaluation for Occupational Therapy CERTIFICATION: I certify that the transfer of the above named patient to an Extended Care Facility is necessary for the continuing treatment of the diagnosis listed. The above information is true and accurate reflection of patient's current condition. Confidential - Redisclosure prohibited without a patient's written consent.
[2017-08-22 16:25] VITALS: BP 106/57
== END 2017-08-22 16:16 ==
LOC: 2ANU
PROVIDERS: ADMIT Internal Medicine Nephrology; ATTEND Internal Medicine